=== PATIENT | female | born 1970 | race Caucasian/White ===

== ENCOUNTER 2021-03-17 15:51 | Emergency (ER) | payer OTHER, MEDICAID, SELFPAY ==
--- NOTE | 2021-03-17 15:58 | ED.SKABFB ---
HPI - Skin/Abscess/Foreign Bdy General Chief complaint: Skin/Abscess/Foreign Body Stated complaint: poison bhupinder or sumac on face Time Seen by Provider: 03/17/21 15:58 Source: patient and RN notes reviewed History of Present Illness HPI narrative: Patient is a 51-year-old female who presents the urgent care with complaints of possible poison bhupinder to the face. Patient believes that her dog gave it to her . Patient states that she has not taken anything [id number] for her symptoms but her PCP always gets her steroids which makes it go away . Patient claims to have a severe allergy to any type of poison bhupinder/sumac. No other acute complaints. No acute distress noted. Patient aware of the plan of care. Some parts of this dictation were generated by voice recognition software and may contain typographical and/or grammatical inaccuracies. Related Data Allergies Allergy/AdvReac Type Severity Reaction Status Date / Time iohexol Allergy Hives Verified 03/17/21 16:06 [From contrast - CT, X-RAY] Review of Systems Review of Systems: CONSTITUTIONAL: Denies fever, chills, or sweats. EYES: Denies visual changes, redness, or discharge. ENT: Denies rhinorrhea, congestion, sore throat, or otalgia. CARDIOVASCULAR: Denies chest pain, palpitations, or edema. RESPIRATORY: Denies cough or dyspnea. GASTROINTESTINAL: Denies abdominal pain, nausea, vomiting, or diarrhea. GENITOURINARY: Denies dysuria or hematuria. SKIN: Reports of itchy poison bhupinder to the face MUSCULOSKELETAL: Denies back pain, joint pain, or myalgia. NEUROLOGIC: Denies headache, numbness, or weakness. All other systems reviewed are negative, except as documented in HPI. PMFSH Comments At the time of my signature, I reviewed and agree with the nursing past medical, surgical, social, and family history. There is no relevant family history pertinent to the patient complaint. Exam Narrative: GENERAL: This is a well-nourished, well-developed patient, in no apparent distress. HEAD: normocephalic, atraumatic. EYES: PERRL. Sclera clear/white. Vision is grossly intact. EARS: External ears normal NOSE: External nose normal with no obvious nasal discharge, nares without redness, no rhinorrhea. THROAT: Mucous membranes moist NECK: Neck supple CARDIOVASCULAR: Regular rate and rhythm. Pacemaker/defibrillator RESPIRATORY: Clear to auscultation. Breath sounds equal bilaterally. No wheezes, rales, or rhonchi. SKIN: Mildly pruritic erythemic raised papular dermatitis noted to the right upper cheek and the left side of the face. Warm, intact with no suspicious lesions or rash, good texture and turgor. NEURO: awake, alert, and oriented to person, place and time. There were no obvious focal neurologic abnormalities. EXTREMITIES: No clubbing, cyanosis, or edema. Course Vital Signs Vital signs: Vital Signs Temperature 99.7 F H 03/17/21 16:02 Pulse Rate 81 03/17/21 16:02 Respiratory Rate 20 03/17/21 16:02 Blood Pressure 134/74 03/17/21 16:02 Pulse Oximetry 98 03/17/21 16:02 Temperature 99.7 F H 03/17/21 16:02 Pulse Rate 81 03/17/21 16:02 Respiratory Rate 20 03/17/21 16:02 Blood Pressure 134/74 03/17/21 16:02 Pulse Oximetry 98 03/17/21 16:02 Reviewed MDM - Skin/Abscess/Foreign Bdy MDM Narrative Medical decision making narrative: Advised the patient to complete the steroid regimen as prescribed. Start the regimen tomorrow considering you have had a large dose in the facility today. Be sure to eat and drink with the medication. Use an oral antihistamine such as Benadryl/Claritin/Zyrtec daily. May use a cool cloth to the area as needed for inflammation and comfort. Follow-up with your PCP within 2 to 5 days or for worsening symptoms or failure to improve. Differential Diagnosis Differential diagnosis: Likely abscess of skin or subcutaneous tissue, viral exanthem, dermatophytosis, urticaria, herpes zoster, cellulitis, insect bites, impetigo and contact dermat
[2021-03-17 16:02] VITALS: BP 134/74; PULSE 81; RESP 20; TEMP 37.6; O2SAT 98
[2021-03-17] MEDS: predniSONE 20 MG TABLET 60 MG PO (16:27)
== END 2021-03-17 16:30 | disposition home or self-care (01) ==
PROVIDERS: Emergency Provider Nurse Practitioner Family; PCP Internal Medicine
DX: L23.7 Allergic contact dermatitis due to plants, except food (principal)
CPT/HCPCS: 99213; G0463; J7512

== ENCOUNTER 2021-04-09 15:05 | Emergency (ER) | payer OTHER, MEDICAID, SELFPAY ==
[2021-04-09 15:24] VITALS: BP 142/99; PULSE 93; RESP 14; TEMP 36.8; O2SAT 98
[2021-04-09 15:33] VITALS: BP 142/99; PULSE 93; RESP 14; TEMP 36.8; O2SAT 98
--- NOTE | 2021-04-09 16:09 | ED.GENADULT ---
HPI - General Adult General Chief complaint: Dental/Oral Stated complaint: tooth inf Source: patient Mode of arrival: ambulatory Limitations: no limitations History of Present Illness HPI narrative: Patient presents for evaluation of right upper dental pain since yesterday. She states she has a temporary cap in place. She believes she has an active infection. No fever, chills, nausea, vomiting, facial swelling, trismus, problems handling secretions. She states the pain is throbbing, constant, 10 out of 10 in severity. She had some hydrocodone at home which she took. She is requesting a prescription for ibuprofen and antibiotics. She is not diabetic. She smokes approximately half a pack per day. No additional complaints or concerns. Related Data Home Medications Medication Instructions Recorded Confirmed ivabradine [Corlanor] 5 mg PO BID 03/17/21 04/09/21 Allergies Allergy/AdvReac Type Severity Reaction Status Date / Time iohexol Allergy Hives Verified 04/09/21 15:27 [From contrast - CT, X-RAY] Review of Systems Review of Systems: CONSTITUTIONAL: Denies fever, chills, or sweats. EYES: Denies visual changes, redness, or discharge. ENT: Reports right upper dental pain. Denies rhinorrhea, congestion, sore throat, or otalgia. CARDIOVASCULAR: Denies chest pain, palpitations, or edema. RESPIRATORY: Denies cough or dyspnea. GASTROINTESTINAL: Denies abdominal pain, nausea, vomiting, or diarrhea. GENITOURINARY: Denies dysuria or hematuria. SKIN: Denies rash or itching. MUSCULOSKELETAL: Denies back pain, joint pain, or myalgia. NEUROLOGIC: Denies headache, numbness, dizziness, or weakness. PSYCHIATRIC: Denies anxiety or depression. [facility] Past Medical History Medical History (Updated 04/09/21 @ 16:18 by Jose Alarcon, DESTINEY, ) No pertinent past medical history Surgical History Surgical History History of section Family History Family History Mother No pertinent past medical history Social History Social History Smoking packs per day: 0.5 Smoking cigarettes per day: 10.0 Smoking status: Current every day smoker Substance use: never Living arrangements: with family Gender identity (if verbalized by the patient): Female Sexual Orientation (if Verbalized by the Patient): Straight or Heterosexual Spiritual care concerns: No Exam Narrative: GENERAL: Well-appearing, well-nourished, visibly uncomfortable but in no apparent distress. HEAD: Normocephalic, atraumatic. EYES: PERRLA and EOMI. ENT: Nares clear, no rhinorrhea or epistaxis. Mucous membranes moist. Metallic cap to tooth #3 intact. No visible or palpable abscess oropharynx without tonsillar hypertrophy exudate or other lesions. Bilateral TMs pearly hernandez nonbulging NECK: Supple. No adenopathy or masses. No carotid bruits or JVD CHEST: Clear to auscultation. No respiratory distress. No wheezes rales or rhonchi HEART: Regular rate and rhythm. No murmur heard. Normal peripheral pulses. ABDOMEN: Soft, nontender, nondistended, normal active bowel sounds. EXTREMITIES: Normal range of motion. No edema. SKIN: Warm, dry, no rash. NEURO: No focal deficits. Alert and oriented x3. PSYCH: Normal mood and affect. Course Course Emergency Course: This is a 51-year-old female who presented with complaints of right upper dental pain. I do not appreciate any abscess formation. However, I find it reasonable to give her abx as she has taken norco with modest relief of her pain. Will dc with PCN and ibuprofen. She should follow up with dentist this coming week and she should return for worsening symptoms. She was given toradol while here today. Pt in agreement with plan of care. Vital Signs Vital signs: Vital Signs Temperature 36.8 C 04/09/21 15:24 Pu
[2021-04-09] MEDS: KETOROLAC (*BKC) 60 MG/2 ML VIAL IM (16:15)
--- NOTE | 2021-04-09 16:59 | PC.NURSE ---
1615 toradol 60 mg drawer failed, two 30mg/1ml given for a total of 60mg- verified by Andrew Hill rn. Keith Jeter [employer]/pharmacist aware.
== END 2021-04-09 16:35 | disposition home or self-care (01) ==
PROVIDERS: Emergency Provider Nurse Practitioner; PCP Internal Medicine
DX: K08.89 Other specified disorders of teeth and supporting structures (principal); F17.210 Nicotine dependence, cigarettes, uncomplicated
CPT/HCPCS: 96372; 99213; G0463; J1885

== ENCOUNTER → 2023-01-05 13:03 | Outpatient (CLI) | payer OTHER, MEDICAID, SELFPAY ==
--- NOTE | ~2023-01-05 | XR_ITS ---
XR ankle RT 2V DATE: 01/05/2023 13:34 INDICATION: Inversion injury, lateral ankle and foot pain TECHNIQUE: 2 views COMPARISON: None FINDINGS: No fracture or dislocation of the ankle or disruption of the ankle mortise. No periosteal r eaction or bone destruction. IMPRESSION: Negative Reviewed, dictated and finalized at location A. IMPRESSION: Negative
--- NOTE | ~2023-01-05 | XR_ITS ---
XR foot RT min 3V DATE: 01/05/2023 13:34 INDICATION: Inversion injury. Lateral tarsal pain. TECHNIQUE: 3 views COMPARISON: None FINDINGS: There is a cortical avulsion fracture of the lateral aspect of the anterior process of the calcaneus. No other fracture or dislocation. Hallux valgus and bunion deformity. IMPRESSION: Cortical avulsion fracture at the lateral aspect of the anterior process of calcaneus Reviewed, dictated and finalized at location A. IMPRESSION: Cortical avulsion fracture at the lateral aspect of the anterior pr ocess of calcaneus
== END ==
DX: M79.671 Pain in right foot (principal); M25.571 Pain in right ankle and joints of right foot; R60.0 Localized edema
CPT/HCPCS: 73600; 73630

== ENCOUNTER 2025-01-25 12:53 | Emergency (ER) | payer OTHER, MEDICAID, SELFPAY ==
--- OUTSIDE RECORDS SUMMARY | 2025-01-25 12:57 | XMS_ITS | Clinical Summary ---
Author Organization [facility] Medical Office Building A Address [address] [place] [address] Care Team Providers Care Neonatal Social Worker Name Role Phone Star Martins Primary Care Provider Maicol Chester MD Unavailable [phone] Allergies Active Allergy Reactions Criticality Noted Date Comments Carvedilol Dapagliflozin Propanediol Dystonia High 11/14/2021 Furosemide Iodinated Contrast Media Iodine Sertraline Other (See comments) Low 01/24/2023 suicidal Medications dextroamphetami ne-amphetamine (ADDERALL) 30 mg tablet 01/10/2019 Active lisdexamfetamin e (VYVANSE) 70 mg capsule Take 1 capsule (70 mg total) by mouth every morning 30 capsule 11/19/2019 Active aspirin 81 mg enteric coated tablet 07/27/2020 Active ezetimibe (ZETIA) 10 mg tablet 09/14/2020 Active estradioL (IMVEXXY) 10 mcg insert vaginal insert Insert 10 mcg into the vagina 2 (two) times a week 8 each 05/31/2022 Active valACYclovir (Valtrex) 1 gram tablet Take 1 tablet (1,000 mg total) by mouth daily 30 tablet 11 05/31/2022 Active HYDROcodone-nenita taminophen (NORCO) 10-325 mg per tabletIndicatio ns:Pain Take 1 tablet by mouth every 4 (four) hours as needed for pain Dx G89.4 120 tablet 12/21/2024 Active Active Problems Problem Noted Date Diagnosed Date Seasonal depression 07/29/2023 Dysthymia 01/24/2023 Irritant contact dermatitis due to other agents 12/25/2021 Assessment & Plan (12/25/2021 4:46 PM CDT): Likely poison bhupinder prednisone 60 for 5 days 40 for 2 and 20 for 2. triamcinalone not for face or where skin to skin contact. Primary osteoarthritis of right hand 05/22/2021 Assessment & Plan (05/22/2021 2:58 PM SERVICE INSPECTOR): actue pain on top of progrssive sudden trial pred and see if can put to rest or referal to rheum . agarees to referal to hand surg for optons as excellent chance that hte steroid parvin not work after off them cold packs limit use after and during steroids Recurrent UTI 05/23/2020 Assessment & Plan (05/23/2020 1:36 PM SERVICE INSPECTOR): Culture neg but started antibiotics at home and neg likely rfrom with abn urine Given recurrent multiple times a yr uti will strt chronic suppression with single strength septra as given macrobid this spring if breaks thru then consider switch to anyother for trial. PE (physical exam), annual 11/23/2019 Assessment & Plan (03/29/2021 2:51 PM CDT): Well exzm low fall risk derpoiens screen neg cog screen nl at age 51 shold conaisder Colon but high risk given End stage chd. . Order. Did not take covid and refuses flu anld covid. Suggest p hsot series given severity of underlying illness Assessment & Plan (11/23/2019 5:46 PM CDT): Well exam sith chronic pain and adhd treated by breann mazariegos heart Issues recurrent uti discussed optinos. Ning due and indicates parvin get and colon screen due at aget 50. Fall flu shots Dyspareunia in female 05/19/2019 Vaginal atrophy 05/19/2019 Assessment & Plan (05/19/2019 9:39 AM SERVICE INSPECTOR): Discussed with patient she is not a candidate for oral estrogen replacement due to cardiovascular history. Patient may be considered for intravaginal replacement. She is aware I will need to consult with one of the medical doctor's to determine safety/risks vs benefits prior to ordering any type of medication for vaginal atrophy. Patient is receptive to plan. Will await test results. Primary osteoarthritis of right knee 10/23/2018 Assessment & Plan (10/23/2018 2:34 PM CDT): refereral ortho if congt to be issue but see rheum first and go from there Polyarthralgia 01/24/2018 Assessment & Plan (10/23/2018 2:35 PM CDT): First apptn in weeks and re eval after wseen as rx for that if an ansswer then should see some added spin off. Assessment & Plan (01/24/2018 10:05 AM CDT): Checking the labs to determine other etiologies which could be causing her poly myalgias however I do not see any thing that could be concerning of lupus or RA at this point time certainly will touch base in regard to results of labs and need for additional management Psychosocial stressors 05/16/2017 Assessment & Plan (05/16/2017 4:53 PM CDT): Patient is under a great deal of psychosocial stress. Please refer to HPI. She declines any additional treatment at this time. She wants to wait it out a couple of days and discuss further when she returns for follow-up early next week. She was encouraged to reach out to me in the interim with any additional questions concerns, change in, worsening, or non improvement in her condition. She denies any suicidal or homicidal thoughts or ideation. Chronic pain syndrome 02/08/2017 Assessment & Plan (02/14/2022 3:50 PM CDT): Stable and discussedd refills and folow up Assessment & Plan (09/25/2021 2:26 PM CDT): Pain stable an dkeeps med same no early refills and not switcing pharm Assessment & Plan (03/29/2021 2:48 PM CDT): Stable sc r eened for drugs and narcotic there Assessment & Plan (09/29/2020 2:34 PM CDT): chroinc pain on meds and constipatino from it . Keep pain meds at stalb e monthly levels and gets meds from us 1-2 times a yr screen urine Assessment & Plan (05/23/2020 1:38 PM SERVICE INSPECTOR): snf goal to get to 4 a day instead of 5 or more. Check urine screeen on reutrn Assessment & Plan (11/23/2019 5:43 PM CDT): High dose heriberto meds gradually backed orf 180 amonth and down to 150 for now in fuute will re eval backoing off 5 a month top 120 a months. Drug screen going forward Assessment & Plan (05/27/2019 3:10 PM SERVICE INSPECTOR): Urine + for drug;. Stable chroinc pain. No early refill request no lost pills discussed reduced meds an dcurrent breakthru and Not heriberto free 04/02. No changes and ongoing checks Assessment & Plan (01/22/2019 1:37 PM CDT): Chronic pain. Aware that can not be Pain free 24/ and that as takes more and higher doses will always become intolerant of pain narcotics.pain contract signed Assessment & Plan (10/23/2018 2:32 PM CDT): chrnoic heriberto back. Using meds reg. Knee on r now stopping her. . Stable on pain meds and check urine screen +_ for drug in aug and not check with nov Assessment & Plan (05/08/2018 9:49 AM CDT): heriberto on going and not controlled wthi 4 vicoden a day with 10's. Admits that has jason=come tolerant to and not very effective Assessment & Plan (01/24/2018 10:06 AM CDT): After checking the [facility] prescription monitoring site, which she actually is listed under [facility] [place] and having her sign a pain contract, I have refilled her [place] to take as prescribed follow-up in 4 months as scheduled with Dr. Alvarez and certainly sooner as indicated Assessment & Plan (08/14/2017 1:27 PM SERVICE INSPECTOR): Chronic pain stable on meds. Cont as yo are. Drug scfreen late last fall + for narcotic and amphetatmines . No other drugs Assessment & Plan (05/16/2017 4:52 PM CDT): On chronic analgesia. Patient reports compliance with medication. Urine drug screen obtained per patient request. Assessment & Plan (02/08/2017 11:51 AM CDT): Going to 4 a day but will not go higher Nonsustained ventricular tachycardia 08/20/2014 Assessment & Plan (03/29/2021 2:49 PM CDT): Implant for and chf Assessment & Plan (11/23/2019 5:43 PM CDT): Under care of card Assessment & Plan (01/22/2019 1:36 PM CDT): Se's card and has defib and Pacer in Assessment & Plan (05/08/2018 9:49 AM CDT): See's card Implantable cardioverter-defibrillator (ICD) in situ 08/20/2013 Assessment & Plan (01/22/2019 1:33 PM CDT): See's card reg and in a study Aortic valve stenosis 04/27/2013 Mitral valve insufficiency 04/27/2013 Tricuspid valve insufficiency 04/27/2013 Pleural cavity effusion 04/27/2013 Mitral valve disease 04/07/2013 Cardiomyopathy 04/07/2013 Assessment & Plan (03/29/2021 2:48 PM CDT): Monitored by card Assessment & Plan (05/23/2020 1:38 PM SERVICE INSPECTOR): The chf se's card for Assessment & Plan (11/23/2019 5:43 PM CDT): crd see's and takes care off Assessment & Plan (05/08/2018 9:50 AM CDT): See's card and in clinical trial. Warned about nsaid's and salt retention Chronic systolic congestive heart failure 2012 Assessment & Plan (09/25/2021 2:24 PM CDT): Se's card and new implant and working well Assessment & Plan (03/29/2021 2:47 PM CDT): See's card and treated. Assessment & Plan (08/03/2020 6:20 PM SERVICE INSPECTOR): actue on chronic chf systolic with dialated heart parvin check bnp cmes cbc to eval more but feels chf playls some role Assessment & Plan (05/23/2020 1:39 PM SERVICE INSPECTOR): seebessy's 'card for Assessment & Plan (01/22/2019 1:33 PM CDT): See's card for Assessment & Plan (05/08/2018 9:49 AM CDT): In Clinical trial Anxiety disorder 12/26/2009 Overview (04/30/2021): Note: Unchanged Note: Unchanged Attention deficit disorder without hyperactivity 12/26/2009 Overview (04/30/2021): Note: Unchanged Assessment & Plan (12/25/2021 4:48 PM CDT): Steroid for some are stimulants so be aware given drugs on Assessment & Plan (09/25/2021 2:26 PM CDT): adhd stable on meds Tobacco use disorder 12/26/2009 Overview (04/30/2021): Note: Unchanged Assessment & Plan (12/03/2023 12:36 PM CDT): She was advised to quit smoking; the risks of continued tobacco use discussed. Assessment & Plan (07/28/2023 3:09 PM SERVICE INSPECTOR): She was advised to quit smoking; the risks of continued tobacco use discussed. Assessment & Plan (07/25/2022 12:34 PM SERVICE INSPECTOR): She was advised to quit smoking; the risks of continued tobacco use discussed. Resolved Problems Problem Noted Date Diagnosed Date Resolved Date Encounter for screening colonoscopy 08/19/2023 12/03/2023 Encounter for screening colonoscopy 08/19/2023 06/15/2024 Neurogenic orthostatic hypotension 02/14/2022 12/03/2023 Assessment & Plan (02/14/2022 3:49 PM CDT): bp drop and consider supoort hose and wathch when jumpps BMI 20.0-20.9, adult 09/25/2021 023 Assessment & Plan (12/25/2021 4:49 PM CDT): Wt stable Assessment & Plan (09/25/2021 2:25 PM CDT): wrk to keep stable Recurrent cystitis 02/09/2020 0 Assessment & Plan (02/09/2020 3:05 PM CDT): Recurring cystitis with 2 + urine cultures w/ growth of E.Coli in the last 4 months, July and September (both treated with antibiotics), given sx today and intermittent, recurring sx recommending consultation to urologist to rule out concerns of possible bladder ulceration, interstitial cystitis or any other etiologies to explain ongoing sx. Furthermore, holding off on treatment recommending conservative management including hydration pending further direction with urine culture, analysis as of tomorrow. Aforementioned, further direction tomorrow with preliminary testing in the interim with any concerns. Body mass index (BMI) of 19. 0 to 19.9 in adult 11/23/2019 09/25/2021 Assessment & Plan (05/22/2021 2:56 PM SERVICE INSPECTOR): Work to keep stabvle Assessment & Plan (03/29/2021 2:48 PM CDT): Work to not drop Assessment & Plan (11/23/2019 5:44 PM CDT): Low body wt stable Pain in both hands 05/08/2018 3 Assessment & Plan (05/08/2018 9:46 AM CDT): Bilateral baswe of thumb with pain and swelling. inflamatory checdks neg. Check evens and look for errosion. If neg then arg to see rheum and likely sono joint and see if thickening of membranes. Puncture wound of great toe of right foot 11/21/2017 08/22/2018 Assessment & Plan (11/21/2017 2:45 PM CDT): Of coucern is apparent exit wound on top fo r First t oe. Unable to move the first toe and swelled. referal to er for xray. eval and optin of treaament. Had tetnus rep ortedly last yr at [facility] . High risk soteomyolitits. Bone infedtion. Er should be able to get some expert opion as to best course as well as prove if I fact went thru the toe joint. Vaginal pain 08/14/2017 08/22/2018 Assessment & Plan (08/14/2017 1:34 PM SERVICE INSPECTOR): Strongly urged to see instructor of spanish as been several yrs and can work on the absence of swex drive alonb withy vag pain with intercourse. Given age and hot flashes likely from hormone Lack . Consider trace doses of vag ext rogen until s ee;s instructor of spanish,estrace Vag Cream. On Finger tip use dayly for a week then try 3 times a week and adjust. Using trace amount top pically applied to extrenal vagina and see instructor of spanish For opino and options Acute cystitis without hematuria 05/16/2017 11/23/2019 Assessment & Plan (05/27/2019 3:09 PM SERVICE INSPECTOR): E coli scnsitive fto all but sulf and amoxil Ongoing c.o and will check urine off antibiotcs 24-36 hrs and Then once lturned in cqn start cefuroxim(500 bid for 10 days) and pydidime (200 tid For 3 days), urine out and Call if not heard. discused possible otyher r easons why feel like urti. Like yeast Assessment & Plan (05/08/2018 9:53 AM CDT): [facility] Assessment & Plan (05/16/2017 4:51 PM CDT): Increasing fluid intake was recommended. Patient was instructed to take antibiotic as directed. Patient was encouraged to take antibiotic with food. I have also recommended daily probiotic, yogurt or capsule, while on the antibiotic. Urine sample will be submitted to the lab for urinalysis with reflex to microscopy and culture. Patient should anticipate a call from me regarding urine culture results within 3 days of having testing completed. Patient has been instructed to contact the office if they have not heard from me with results within this time frame. Prior urine culture/susceptibility panel reviewed. Close follow-up here early next week. Sooner if indicated. Other chronic pain 05/16/2017 8 Impacted cerumen of left ear 02/08/2017 08/14/2017 Assessment & Plan (02/08/2017 11:51 AM CDT): Wax mostly out. Use a triple antibiotic cream at the opening of the ear and should help the re sidual iritation Tinea of nail 02/08/2017 08/14/2017 Assessment & Plan (02/08/2017 11:54 AM CDT): Both big toe nails involved. Need to clip the nail to attached area. Or the med will not treat. Will check baselinile alt.liver functino to prove stable and risk for the liver then apears near nil Congestive heart failure 10/13/2014 Overview (04/30/2021): Note: atrial fibrillation Assessment & Plan (12/25/2021 4:48 PM CDT): Given chf severe watch for salt retentino as sevfere chf. More care with salt then usual Fatigue 01/04/2014 07/28/2023 Edema 04/22/2013 01/24/2023 Palpitations 04/07/2013 11/23/2019 Encounters Date Type Department Care Team Description 11/19/2024 Telephone [facility] Cardiology [id number] [facility] 8[address] [place] [address] [place] [address] Vince Rodriguez MD PhD from Last 3 Months Immunizations Immunization Administration Dates Next Due Influenza, Unspecified 08/25/2024(Deferr ed: Patient Refused),06/15/2024(Deferred: Patient Refused),07/29/2023(Deferred: Patient Refused),04/14/2023(Deferred: Patient Refused),09/29/2020(Deferred: Patient Refused),08/03/2020(Deferred: Patient Refused),05/23/2020(Deferred: Patient Refused),04/14/2020(Deferred: Patient Refused),02/17/2020(Deferred: Patient Refused),02/13/2020(Deferred: Patient Refused),04/20/2019(Deferred: Patient Refused),04/14/2019(Deferred: Patient Refused),04/14/2019(Deferred: Patient Refused),08/22/2018(Deferred: Patient ill today) Tdap 03/29/2020 Surgical History Surgery Date Site/Laterality Comments SECTION Caesarean Section OTHER SURGICAL HISTORY pacemaker/defibulator [id number] OTHER SURGICAL HISTORY 1987/2009 Medical History Medical History Date Comments Hx Other Medical Cardiomyopathy Hx Other Medical ETOH abuse Attention deficit disorder ADHD Hx Other Medical Palpitations Hx Other Medical Substance abuse - crystal meth UTI (urinary tract infection) CHF (congestive heart failure) (HCC) Cardiomyopathy (HCC) Family History Medical History Relation Name Comments Other Father 2 CHF, AFIB; Heart attack Maternal Grandmother 2 [place]; C ause of : [place] Rheum arthritis Mother 2 Rheumatoid a rthritis; Cause of : Rheumatoid arthritis Relation Name Status Comments Father 1 Alive Father 2 Maternal Grandmother 1 (Age 82) Maternal Grandmother 2 Mother 1 (Age 65) Mother 2 Social History Tobacco Use Types Packs/Day Years Used Date Smoking Tobacco: Every Day Cigarettes 0.1 20 Smokeless Tobacco: Current Tobacco Cessation:Ready to Q uit: No; Counseling Given: Yes Comments:1pk x 20 years, .5ok x 18 years = 29 pk years Alcohol Use Standard Drinks/Week Comments Yes 0 (1 standard drink = 0.6 oz pur e alcohol) AUDIT-C Answer Date Recorded Q1: How often do you have a drink containing alc ohol? Monthly or less 08/25/2024 Q2: How many drinks containi ng alcohol do you have on a typical day when you are drinking? 1 or 2 08/25/2024 Q3: How often do you have si x or more drinks on one occasion? Never 08/25/2024 PHQ-2 Answer Date Recorded PHQ-2 Total Score (If total score is 3 or more points, staff should administer the PHQ-9) 6 08/25/2024 Personal Safety Answer Date Recorded Have you ever been in or are you currently in a harmful physical or emotional relationship or is someone making you feel afraid or unsafe? Denies 08/24/2024 Comments No Sex and Gender Information Value Date Recorded Sex Assigned at Not on file Legal Sex Female 9:26 AM SERVICE INSPECTOR Gender Identity Not on file Sexual Orientation Not on file Occupation Industry Job Start Date Job End Date Unemployed Not on file Not on file Not on file Obstetrics History Para Term AB IAB SAB Ectopic Multiple Livin g Live Births 6 2 2 4 0 1 2 2 Date Outcome GA Total Labor Labor/2nd/3rd Weight Sex Type Anes PTL Susanne A1 A5 Name Clin SAB AB AB AB 8 Term 2.778 kg (6 lb 2 oz) F CS-Un spec Living 0 Term 3.232 kg (7 lb 2 oz) F CS-Un spec Living Last Filed Vital Signs Vital Sign Reading Time Taken Comments Blood Pressure 108/70 08/25/2024 2:53 PM SERVICE INSPECTOR Pulse 81 08/25/2024 2:53 PM SERVICE INSPECTOR Temperature 36.3 C (97.4 F) 08/25/2024 2:53 PM SERVICE INSPECTOR Respiratory Rate 16 08/25/2024 2:53 PM SERVICE INSPECTOR Oxygen Saturation 98% 08/25/2024 2:53 PM SERVICE INSPECTOR Inhaled Oxygen Concentration - - Weight 59.9 kg (132 lb) 08/28/2024 2:30 PM SERVICE INSPECTOR Height 172.7 cm (5' 8) 08/28/2024 2:30 PM SERVICE INSPECTOR Body Mass Index 20.07 08/28/2024 2:30 PM SERVICE INSPECTOR Plan of Treatment Health Maintenance Due Date Last Done Comments Colon Cancer Screening-Colonoscopy 1970 Pneumococcal vaccine <65 (1 of 2 - PCV) 1989 Zoster Vaccine (1 of 2) 2020 Cervical Cancer Screening 05/31/2023 05/31/2022, 10/2018 Breast Cancer Screening-Mammogram 08/23/2024 024, 06/24/2012 Regular Well Visit/Exam 18-64 12/02/2024, 07/25/2022, 05/31/2022, Additional history exists Influenza Vaccine (#1) 2025 Depression Screening 08/25/2025 08/25/2024, 06/15/2024, 12/03/2023, Additional history exists Lung Cancer Screening 08/29/2025 08/28/2024, 024 DTaP/Tdap/Td Vaccine (2 - Td or Tdap) 03/29/2030 03/29/2020 Hepatitis B Screening Completed 12/03/2023 Hepatitis C Screening Completed 12/03/2023 Procedures Procedure Name Priority Date/Time Associated Diagnosis Comments CT LUNG CANCER SCREENING Schedule Routine, Read Routine (OP Routine) 08/28/2024 2:29 PM SERVICE INSPECTOR Personal history of tobacco use, presenting hazards to health HEPATITIS C ANTIBODY Routine 12/03/2023 2:22 PM CDT Need for hepatitis C screening test SCREENING MAMMOGRAM BILATERAL W ALDO Schedule Routine, Read Routine (OP Routine) 08/23/2023 2:33 PM SERVICE INSPECTOR Screening mammogram for breast cancer PAP AND HIGH RISK HPV, REFLEX TO GENOTYPING Routine 05/31/2022 11:54 AM SERVICE INSPECTOR Screening for malignant neoplasm of cervix from Last 3 Months or Most Recently Relevant to Health Maintenance Results * CT Lung Cancer Screening (08/28/2024 2:29 PM SERVICE INSPECTOR) Anatomical Region Laterality Modality Chest N/A Computed Tomogra phy 09/02/2024 8:05 AM SERVICE INSPECTOR Narrative 09/02/2024 8:14 AM SERVICE INSPECTOR EXAM DESCRIPTION: CT LUNG CANCER SCREENING REASON FOR STUDY: Screening CT of the chest in a current smoker with a 29.5 pack year smoking history. Additional history: None. TECHNIQUE: Low dose CT scan of the chest was performed without intravenous contrast using helical scanning technique. The exam extends from the lung apices through the lung bases. Automatic exposure control was used as a dose optimization technique. NOTE: This study was performed for the specific purposes of lung cancer screening and is not an alternative to diagnostic chest CT. The sensitivity for detection of solid visceral lesions is diminished without the use of intravenous contrast. RADIATION DOSE: CT dose index volume (CTDIvol) = 0.96 mGy COMPARISON: CT chest 08/23/2023 FINDINGS: SMOKING RELATED LUNG DISEASE: Mild pulmonary emphysema. LUNG NODULES: Calcified granulomas in the left lower lobe. Noncalcified 2 mm nodule in the lateral right upper lobe (image 91) is unchanged. Subpleural noncalcified 2 mm nodule in the lateral left upper lobe (image 42) is unchanged. No new nodule. PLEURAE: No pneumothorax or pleural effusion. MEDIASTINUM/GIOVANNA: No mediastinal or hilar lymphadenopathy within the limitations of a noncontrast exam. HEART: Heart size is normal with no pericardial effusion. CORONARY ARTERY CALCIFICATION: Absent VASCULATURE: No thoracic aortic aneurysm. AXILLAE: No lymphadenopathy. CHEST WALL: No masses. No subcutaneous air. HARDWARE/LINES/TUBES: Bilateral chest generator packs with leads terminating in the right atrium and right ventricle. UPPER ABDOMEN: No significant abnormality. MUSCULOSKELETAL: Mild thoracic spondylosis. IMPRESSION: Stable noncalcified pulmonary nodules measuring up to 2 mm. Mild pulmonary emphysema. Lung-RADS category 2: Benign appearance or behavior. Recommendation: Low dose Screening CT of chest in 12 months. THIS IS AN ELECTRONICALLY VERIFIED FINAL REPORT 09/02/2024 8:14 AM - Electronically signed by Alec Quintanilla M.D. LB: GIULIANO Report ID: [id number] Reading Location: [place] [address] Procedure Note Alec Quintanilla MD - 09/02/2024 EXAM DESCRIPTION: CT LUNG CANCER SCREENING REASON FOR STUDY: Screening CT of the chest in a current smoker with a29.5 pack year smoking history. Additional history: None. TECHNIQUE: Low dose CT scan of the chest was performed without intravenous contrast using helical scanning technique. The exam extends from the lung apices through the lung bases. Automatic exposure control was used as adose optimization technique. NOTE: This study was performed for the specific purposes of lung cancer screening and is not an alternative to diagnostic chest CT. Thesensitivity for detection of solid visceral lesions is diminished without the use of intravenous contrast. RADIATION DOSE: CT dose index volume (CTDIvol) = 0.96 mGy COMPARISON: CT chest 08/23/2023 FINDINGS: SMOKING RELATED LUNG DISEASE: Mild pulmonary emphysema. LUNG NODULES: Calcified granulomas in the left lower lobe. Noncalcified2 mm nodule in the lateral right upper lobe (image 91) is unchanged.Subpleural noncalcified 2 mm nodule in the lateral left upper lobe (image 42) is unchanged. No new nodule. PLEURAE: No pneumothorax or pleural effusion. MEDIASTINUM/GIOVANNA: No mediastinal or hilar lymphadenopathy within the limitations of a noncontrast exam. HEART: Heart size is normal with no pericardial effusion. CORONARY ARTERY CALCIFICATION: Absent VASCULATURE: No thoracic aortic aneurysm. AXILLAE: No lymphadenopathy. CHEST WALL: No masses. No subcutaneous air. HARDWARE/LINES/TUBES: Bilateral chest generator packs with leadsterminating in the right atrium and right ventricle. UPPER ABDOMEN: No significant abnormality. MUSCULOSKELETAL: Mild thoracic spondylosis. IMPRESSION: Stable noncalcified pulmonary nodules measuring up to 2 mm. Mild pulmonary emphysema. Lung-RADS category 2: Benign appearance or behavior. Recommendation: Low dose Screening CT of chest in 12 months. THIS IS AN ELECTRONICALLY VERIFIED FINAL REPORT 09/02/2024 8:14 AM - Electronically signed by Alec Quintanilla M.D. LB: GIULIANO Report ID: [id number] Reading Location: [place] [address] PROCEDURES Final Result * Hepatitis C antibody Blood (12/03/2023 2:22 PM CDT) Hep C Ab Nonreactive Nonreactive Comment: Interpretive Data Nonreactive: Antibodies to HCV not detected. Does NOT exclude the possibility of recent exposure to HCV. Equivocal: Equivocal for HCV antibodies. Supplemental molecular testing will be automatically performed to determine infection status in accordance with current CDC screening recommendations. Reactive: Positive for HCV antibodies. This may represent current or past HCV infection. Supplemental molecular testing will be automatically performed to determine current infection status in accordance with current CDC screening recommendations. Interpretive data was last revised on 2019. Testing performed by: [facility], [address] [place] [address]., [address] Blood 12/03/2023 2:22 PM CDT 12/03/2023 9:10 PM CDT [facility] MICROBIOLOGY - GENE RAL ORDERABLES Edited Result - Final MELISSA [facility]) 2 [facility] Department [place] [address] * SCREENING MAMMOGRAM BILATERAL W ALDO (08/23/2023 2:33 PM SERVICE INSPECTOR) Anatomical Region Laterality Modality Breast Bilateral Mammography 08/23/2023 2:39 PM SERVICE INSPECTOR Impressions 08/23/2023 2:39 PM SERVICE INSPECTOR There is no mammographic evidence of malignancy. A 1 year screening mammogram is recommended. BI-RADS: 1 - Negative. The patient has been or will be contacted. The patient will be entered into a reminder system with a target due date of 1 year for her next mammogram. Electronically signed by: BALDEV NUNEZ Narrative 08/23/2023 2:39 PM SERVICE INSPECTOR EXAMINATION: SCREENING MAMMOGRAM BILATERAL W ALDO ORDERING HEALTHCARE PROVIDER: STAR MARTINS HISTORY: Routine screening mammography. COMPARISON: 06/24/2012. TECHNIQUE: CC and MLO views of both breasts were obtained with digital technique using digital breast tomosynthesis with C view. Computer aided detection was utilized. FINDINGS: DENSITY: The breasts are heterogeneously dense, which may obscure small masses. BREASTS: Pacer generator is partially seen in the upper aspects of both breasts at posterior depth on the MLO views. No new suspicious findings are identified in either breast. us [facility] MAMMO PROCEDURES Fi nal Result * Pap and High Risk HPV, reflex to Genotyping (05/31/2022 11:54 AM SERVICE INSPECTOR) Thin prep (Pap test) 05/31/2022 11:54 AM SERVICE INSPECTOR 05/31/2022 11:54 AM SERVICE INSPECTOR Narrative PATHOLOGY CH - 06/05/2022 12:59 PM SERVICE INSPECTOR [facility] Department of Pathology [address] [place], [place] [id number] Final Report with Addendum Note to Patients: This report may contain a detailed description of human tissue sent by a health care provider to the laboratory for pathologic evaluation. The content of this report is essential for diagnosis and may provide important critical findings. This information may be unfamiliar to patients to review without a medical professional present. It is advised that the patient review this report in the presence of a health care provider who can answer questions and explain the details. Patient Name: KAROL PRESCOTT Address: [address] [place] [address] Gender: F : 1970 (Age: 52) Service: Location: [facility] : [id number] [facility] #: [id number] Patient Type: SPECIMEN Taken: 05/31/2022 Received: 05/31/2022 Accessioned:: 06/01/2022 Reported: 06/05/2022 Physician(s): Marianela E. Elsa, D.Vanessa Hunter D.O. Diagnosis: Source of Specimen: SCREENING THIN PREP IMAGED PAP w/ HPV Specimen Adequacy: - Satisfactory for evaluation; endocervical/transformation zone component present General Category: - Negative for intraepithelial lesion or malignancy Interpretation/Results: - Numerous inflammatory cells present NAHEED Wayne(ASCP) Report Electronically Reviewed and Signed Out By YUMIKO WayneASCP) 06/05/2022 12:59:32Addenda: HPV Test Interpretation NEGATIVE for types 16, 18, 31, 33, 35, 39, 45, 51, 52, 56, 58, 59, 66 and 68. Test performed utilizing Gen-Probe Aptima assay. NAHEED Pagan(ASCP)Report Electronically Reviewed and Signed Out By YUMIKO PaganASCP) 06/01/2022 17:35:15 Specimen(s) Received: A: SCREENING THIN PREP IMAGED PAP w/ HPV Clinical History: Menstrual History: Post-menopausal The Pap test is a screening test used to aid in the detection of cervical cancer and its precursors. It should not be the sole means by which malignant and premalignant lesions are diagnosed. Both false negative and false positive results may occur. It also has poor sensitivity for the detection of endometrial lesions and should not be used to evaluate suspected endometrial abnormalities. For these reasons it is most important to obtain Pap tests at regular intervals. The performance characteristics of some immunohistochemical stains, fluorescence in-situ hybridization tests and immunophenotyping by flow cytometry cited in this report (if any) were determined by the Surgical Pathology Department at [facility] as part of an ongoing supervisor vendor quality program and in compliance with federally mandated regulations drawn from the Clinical Laboratory Improvement Act of 1988 (CLIA '88). Some of these tests rely on the use of analyte specific reagents and are subject to specific labeling requirements by the US Food and Drug Administration. Such diagnostic tests may only be performed in a facility that is certified by the Department of Health and Human Services as a high complexity laboratory under CLIA '88. The FDA has determined that such clearance or approval is not necessary. This test is used for clinical purposes. It should not be regarded as investigational or for research. Nevertheless, federal rules concerning the medical use of analyte specific reagents require that the following disclaimer be attached to the report: This test was developed and its performance characteristics determined by the Surgical Pathology Department [facility]. It has not been cleared or approved by the U. S. Food and Drug Administration. us Marianela Hunter DO LAB [place]OLOGY [place] [address] [place] [address] from Last 3 Months or Most Recently Relevant to Health Maintenance Insurance [facility] H[facility]/PPO Address: [address] [address] [place] [address] IDPA [facility] H[facility]/PPO Address: [address] [place] [id number] IDPA [facility] H[facility]/PPO Address: [address] [address] [place] [address] IDPA Care Teams Neonatal Social Worker Relationship Specialty Start Date End Date Star Martins PA [address] [facility] [address] [facility] [place] [address] PCP - General Internal Medicine 04/03/22 [place] [address] [address] Consulting Physician Cardiology 07/25/22
--- OUTSIDE RECORDS SUMMARY | 2025-01-25 12:57 | XMS_ITS | Encounter Summary ---
Author Organization [facility] Address [address] [facility] [address] [place] [address] Phone Care Team Providers Care Swing Tender Name Role Phone Chris Alvarez MD Primary Care Provi arabella Chris Alvarez MD Primary Care Provi arabella Chris Alvarez MD Primary Care Provi arabella Chris Alvarez MD Primary Care Provi arabella Chris Alvarez MD Primary Care Provi arabella Star [facility]ins Primary Care Provider Maicol [place] MD Unavailable [phone] Encounter Details Date Type Department Care Team (Late st Contact Info) Description 02/26/2014 Orders Only [facility]CON[facility] Provider, MD Joselyn [address] [place] [address] Social History Tobacco Use Types Packs/Day Years Used Date Smoking Tobacco: Every Day Alcohol Use Standard Drinks/Week Comments Yes 0 (1 standard drink = 0.6 oz pur e alcohol) Comments Unknown Sex and Gender Information Value Date Recorded Sex Assigned at Not on file Legal Sex Female 9:26 AM MINES INSPECTOR Gender Identity Not on file Sexual Orientation Not on file documented as of this encounter Plan of Treatment Not on file documented as of this encounter Procedures Procedure Name Priority Date/Time Associated Diagnosis Comments CARDIOLOGY REPORT 02/26/2014 documented in this encounter Results * CARDIOLOGY REPORT (02/26/2014) Anatomical Region Laterality Modality Other Narrative 02/26/2014 Ordered by an unspecified provider. us Historical Provider [facility] BOWERS Final Result documented in this encounter Visit Diagnoses Not on filedocumented in this encounter Additional Health Concerns Infection Onset Date Last Indicated Resolved Time COVID: Suspected 05/19/2022 05/19/2022 05/19/2022 8:22 AM CDT documented as of this encounter Care Teams Swing Tender Relationship Specialty Start Date End Date Chris Alvarez MD PCP - General 10/12/16 04/02/22 Chris Alvarez MD PCP - General 11/07/15 10/11/16 Chris Alvarez MD PCP - General 09/14/15 11/06/15 Chris Alvarez MD PCP - General 08/23/15 09/13/15 Chris Alvarez MD PCP - General 01/05/13 08/22/15 Star Martins PA [address] [place] [address] [place] [address] PCP - General Internal Medicine 04/03/22 [place] [address] [place] [address] Consulting Physician Cardiology 07/25/22 documented as of this encounter
--- OUTSIDE RECORDS SUMMARY | 2025-01-25 12:57 | XMS_ITS | Encounter Summary ---
Author Organization [facility] Address [address] [facility] [address] [place] [address] Phone Care Team Providers Care Radial Drill Press Operator For Plastic Name Role Phone Chris Alvarez MD Primary Care Provi arabella Chris Alvarez MD Primary Care Provi arabella Chris Alvarez MD Primary Care Provi arabella Chris Alvarez MD Primary Care Provi arabella Chris Alvarez MD Primary Care Provi arabella Star Martins Primary Care Provider Maicol [place] MD Unavailable [phone] Encounter Details Date Type Department Care Team (Late st Contact Info) Description 09/05/2014 Orders Only [facility] Provider, MD Joselyn [address] [place] [address] Social History Tobacco Use Types Packs/Day Years Used Date Smoking Tobacco: Every Day Alcohol Use Standard Drinks/Week Comments Yes 0 (1 standard drink = 0.6 oz pur e alcohol) Comments Unknown Sex and Gender Information Value Date Recorded Sex Assigned at Not on file Legal Sex Female 9:26 AM COMPENSATION ADJUSTER Gender Identity Not on file Sexual Orientation Not on file documented as of this encounter Plan of Treatment Not on file documented as of this encounter Procedures Procedure Name Priority Date/Time Associated Diagnosis Comments CARDIOLOGY REPORT 09/05/2014 documented in this encounter Results * CARDIOLOGY REPORT (09/05/2014) Anatomical Region Laterality Modality Other Narrative 09/05/2014 Ordered by an unspecified provider. us Historical Provider [facility] C[facility] LORRI BOWERS Final Result documented in this encounter Visit Diagnoses Not on filedocumented in this encounter Additional Health Concerns Infection Onset Date Last Indicated Resolved Time COVID: Suspected 05/19/2022 05/19/2022 05/19/2022 8:22 AM CDT documented as of this encounter Care Teams Radial Drill Press Operator For Plastic Relationship Specialty Start Date End Date Chris Alvarez MD PCP - General 10/12/16 04/02/22 Chris Alvarez MD PCP - General 11/07/15 10/11/16 Chris Alvarez MD PCP - General 09/14/15 11/06/15 Chris Alvarez MD PCP - General 08/23/15 09/13/15 Chris Alvarez MD PCP - General 01/05/13 08/22/15 Star Martins PA [address] [place] [address] [place] [address] PCP - General Internal Medicine 04/03/22 [place] [address] [place] [address] Consulting Physician Cardiology 07/25/22 documented as of this encounter
--- OUTSIDE RECORDS SUMMARY | 2025-01-25 12:57 | XMS_ITS | Encounter Summary ---
Author Organization [facility] Address [address] [facility] [address] [place] [address] Phone Care Team Providers Care Sports Health Club Membership Advisors Name Role Phone Chris Alvarez MD Primary Care Provi arabella Chris Alvarez MD Primary Care Provi arabella Chris Alvarez MD Primary Care Provi arabella Chris Alvarez MD Primary Care Provi arabella Chris Alvarez MD Primary Care Provi arabella Star [facility]ins Primary Care Provider Maicol [place] MD Unavailable [phone] Encounter Details Date Type Department Care Team (Late st Contact Info) Description 08/04/2014 Orders Only [facility] Provider, MD Joselyn [address] [place] [address] Social History Tobacco Use Types Packs/Day Years Used Date Smoking Tobacco: Every Day Alcohol Use Standard Drinks/Week Comments Yes 0 (1 standard drink = 0.6 oz pur e alcohol) Comments Unknown Sex and Gender Information Value Date Recorded Sex Assigned at Not on file Legal Sex Female 9:26 AM GUEST ROOM ATTENDANT Gender Identity Not on file Sexual Orientation Not on file documented as of this encounter Plan of Treatment Not on file documented as of this encounter Procedures Procedure Name Priority Date/Time Associated Diagnosis Comments CARDIOLOGY REPORT 08/04/2014 documented in this encounter Results * CARDIOLOGY REPORT (08/04/2014) Anatomical Region Laterality Modality Other Narrative 08/04/2014 Ordered by an unspecified provider. us Historical Provider [facility] LORRI BOWERS Final Result documented in this encounter Visit Diagnoses Not on filedocumented in this encounter Additional Health Concerns Infection Onset Date Last Indicated Resolved Time COVID: Suspected 05/19/2022 05/19/2022 05/19/2022 8:22 AM CDT documented as of this encounter Care Teams Sports Health Club Membership Advisors Relationship Specialty Start Date End Date Chris Alvarez MD PCP - General 10/12/16 04/02/22 Chris Alvarez MD PCP - General 11/07/15 10/11/16 Chris Alvarez MD PCP - General 09/14/15 11/06/15 Chris Alvarez MD PCP - General 08/23/15 09/13/15 Chris Alvarez MD PCP - General 01/05/13 08/22/15 Star Martins PA [address] [place] [address] [place] [address] PCP - General Internal Medicine 04/03/22 [place] [address] [place] [address] Consulting Physician Cardiology 07/25/22 documented as of this encounter
--- OUTSIDE RECORDS SUMMARY | 2025-01-25 12:57 | XMS_ITS | Encounter Summary ---
Author Organization [facility] Address [address] [facility] [address] [place] [address] Phone Care Team Providers Care Driller Hand Name Role Phone Chris Alvarez MD Primary Care Provi arabella Chris Alvarez MD Primary Care Provi arabella Chris Alvarez MD Primary Care Provi arabella Chris Alvarez MD Primary Care Provi arabella Chris Alvarez MD Primary Care Provi arabella Star Martins Primary Care Provider Maicol Chester MD Unavailable [phone] Encounter Details Date Type Department Care Team (Late st Contact Info) Description 04/13/2014 Orders Only [facility] Provider, MD Joselyn [address] [place] [address] Social History Tobacco Use Types Packs/Day Years Used Date Smoking Tobacco: Every Day Alcohol Use Standard Drinks/Week Comments Yes 0 (1 standard drink = 0.6 oz pur e alcohol) Comments Unknown Sex and Gender Information Value Date Recorded Sex Assigned at Not on file Legal Sex Female 9:26 AM QUANTITATIVE ANALYST DEVELOPER Gender Identity Not on file Sexual Orientation Not on file documented as of this encounter Plan of Treatment Not on file documented as of this encounter Procedures Procedure Name Priority Date/Time Associated Diagnosis Comments CARDIOLOGY REPORT 04/13/2014 documented in this encounter Results * CARDIOLOGY REPORT (04/13/2014) Anatomical Region Laterality Modality Other Narrative 04/13/2014 Ordered by an unspecified provider. us Historical Provider [facility] L[facility]RI BOWERS Final Result documented in this encounter Visit Diagnoses Not on filedocumented in this encounter Additional Health Concerns Infection Onset Date Last Indicated Resolved Time COVID: Suspected 05/19/2022 05/19/2022 05/19/2022 8:22 AM CDT documented as of this encounter Care Teams Driller Hand Relationship Specialty Start Date End Date Chris Alvarez MD PCP - General 10/12/16 04/02/22 Chris Alvarez MD PCP - General 11/07/15 10/11/16 Chris Alvarez MD PCP - General 09/14/15 11/06/15 Chris Alvarez MD PCP - General 08/23/15 09/13/15 Chris Alvarez MD PCP - General 01/05/13 08/22/15 Star Martins PA [address] [place] [address] [place] [address] PCP - General Internal Medicine 04/03/22 [place] [address] [place] [address] Consulting Physician Cardiology 07/25/22 documented as of this encounter
--- OUTSIDE RECORDS SUMMARY | 2025-01-25 12:57 | XMS_ITS | Encounter Summary ---
Author Organization [facility] Address [address] [place] [address] Care Team Providers Care Reforestation Worker Name Role Phone Star Martins Primary Care Provider Maicol [place] MD Unavailable [phone] Reason for Visit * Auth/Cert (Routine) Specialty Diagnoses / Procedures Referred By Contac t Referred To Contact Diagnoses Encounter for screening colonoscopy Encounter for screening colonoscopy [Z12.11] Procedures MS COLONOSCOPY FLX DX W/COLLJ SPEC WHEN PFRMD COLONOSCOPY Referral ID Status Reason Start Date Expiration Date Visits Re quested Visits Authorized [id number] 1 1 Encounter Details Date Type Department Care Team (Late st Contact Info) Description 02/27/2024 Hospital Encounter [facility] [address] [place] [address] Brandee Forbes MD [address] [place] [address] [address] [place] [address] Social History Tobacco Use Types Packs/Day Years Used Date Smoking Tobacco: Every Day Cigarettes 0.1 20 Smokeless Tobacco: Current Comments:1pk x 20 years, .5o k x 18 years = 29 pk years [...] on file Legal Sex Female 9:26 AM VACUUM SYSTEM TESTER Gender Identity Not on file Sexual Orientation Not on file Occupation Industry Job Start Date Job End Date Unemployed Not on file Not on file Not on file documented as of this encounter Functional Status * Audit-C Score Answer Date of Assessment Author 1 08/25/2024 2:54 PM VACUUM SYSTEM TESTER Caitlyn Rodriguez MA * Question Answer Date of Assessment Author Q1: How often do you have a drink containing alcohol? Monthly or less 08/25/2024 2:54 PM Shannan Pierce MA Q2: How many drinks containing alcohol do you have on a typical day when you are drinking? 1 or 2 08/25/2024 2:54 PM Salena Pierce MA Q3: How often do you have si x or more drinks on one occasion? Never 08/25/2024 2:54 PM Salena Pierce MA documented as of this encounter Plan of Treatment Not on file documented as of this encounter Visit Diagnoses Not on filedocumented in this encounter Admitting Diagnoses Diagnosis Encounter for screening colonoscopy documented in this encounter Care Teams Reforestation Worker Relationship Specialty Start Date End Date Star Martins PA [address] [place] [address] [address] [place] [address] PCP - General Internal Medicine 04/03/22 [place] [address] [address] [place] [address] [place] [address] Consulting Physician Cardiology 07/25/22 documented as of this encounter
--- OUTSIDE RECORDS SUMMARY | 2025-01-25 12:57 | XMS_ITS | Encounter Summary ---
Author Organization [facility] Address [address] [facility] [address] [place] [address] Phone Care Team Providers Care Managed Care Provider Name Role Phone Chris Alvarez MD Primary Care Provi arabella Chris Alvarez MD Primary Care Provi arabella Chris Alvarez MD Primary Care Provi arabella Chris Alvarez MD Primary Care Provi arabella Chris Alvarez MD Primary Care Provi arabella Star Martins Primary Care Provider Maicol [place] MD Unavailable [phone] Encounter Details Date Type Department Care Team (Late st Contact Info) Description 08/26/2013 Orders Only [facility]CON[facility] Provider, MD Joselyn [address] [place] [address] Social History Tobacco Use Types Packs/Day Years Used Date Smoking Tobacco: Every Day Alcohol Use Standard Drinks/Week Comments Yes 0 (1 standard drink = 0.6 oz pur e alcohol) Comments Unknown Sex and Gender Information Value Date Recorded Sex Assigned at Not on file Legal Sex Female 9:26 AM SALESPERSON FLOWERS Gender Identity Not on file Sexual Orientation Not on file documented as of this encounter Plan of Treatment Not on file documented as of this encounter Procedures Procedure Name Priority Date/Time Associated Diagnosis Comments CARDIOLOGY REPORT 08/26/2013 documented in this encounter Results * CARDIOLOGY REPORT (08/26/2013) Anatomical Region Laterality Modality Other Narrative 08/26/2013 Ordered by an unspecified provider. us Historical Provider [facility] LORRI BOWERS Final Result documented in this encounter Visit Diagnoses Not on filedocumented in this encounter Additional Health Concerns Infection Onset Date Last Indicated Resolved Time COVID: Suspected 05/19/2022 05/19/2022 05/19/2022 8:22 AM CDT documented as of this encounter Care Teams Managed Care Provider Relationship Specialty Start Date End Date Chris Alvarez MD PCP - General 10/12/16 04/02/22 Chris Alvarez MD PCP - General 11/07/15 10/11/16 Chris Alvarez MD PCP - General 09/14/15 11/06/15 Chris Alvarez MD PCP - General 08/23/15 09/13/15 Chris Alvarez MD PCP - General 01/05/13 08/22/15 Star Martins PA [address] [place] [address] [place] [address] PCP - General Internal Medicine 04/03/22 [place] [address] [place] [address] Consulting Physician Cardiology 07/25/22 documented as of this encounter
--- OUTSIDE RECORDS SUMMARY | 2025-01-25 12:57 | XMS_ITS | Referral Summary ---
Author Organization [facility] Medical Office Building A Address [address] [place] [address] Care Team Providers Care Portfolio Specialist Name Role Phone Star Martins Primary Care Provider Maicol Chester MD Unavailable [phone] Encounters Date Type Department Care Team Description 11/19/2024 Telephone [facility] Cardiology [address] [facility] 8[address] [place] [address] [place] [address] Vince Rodriguez MD PhD from Last 3 Months Allergies Active Allergy Reactions Criticality Noted Date [...] 2 (two) times a week 8 each 11 05/31/2022 Active valACYclovir (Valtrex) 1 gram tablet [...] 05/22/2021 Assessment & Plan (05/22/2021 2:58 PM SALES AGENT INSURANCE): actue pain on top of progrssive sudden trial pred and see if can put to rest or referal to rheum . 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 Check urine screeen on reutrn Assessment & Plan (11/23/2019 5:43 PM CDT): High dose heriberto meds gradually backed orf 180 amonth and down to 150 for now in fuute will re eval backoing off 5 a month top 120 a months. Drug screen going forward Assessment & Plan (05/27/2019 3:10 PM SALES AGENT INSURANCE): Urine + for drug;. Stable chroinc pain. No early refill request no lost pills discussed reduced meds an dcurrent breakthru and Not heriberto free 04/02. No changes and ongoing checks Assessment & Plan (01/22/2019 1:37 PM CDT): Chronic pain. Aware that can not be Pain free 24/7 and that as takes more and higher [...] (01/24/2018 10:06 AM CDT): After checking the [facility] prescription monitoring site, which she actually is listed under JORGE Prescott and having her sign a pain contract, I have refilled her [place] to take as prescribed follow-up in 4 months as scheduled with Dr. Alvarez and certainly sooner as indicated Assessment & Plan (08/14/2017 1:27 PM SALES AGENT INSURANCE): Chronic pain stable on meds. Cont as [...] card Assessment & Plan (05/23/2020 1:38 PM SALES AGENT INSURANCE): The chf se's card for Assessment & [...] treated. Assessment & Plan (08/03/2020 6:20 PM SALES AGENT INSURANCE): actue on chronic chf systolic with dialated heart parvin check bnp cmes cbc to eval more but feels chf playls some role Assessment & Plan (05/23/2020 1:39 PM SALES AGENT INSURANCE): seebessy's 'card for Assessment & Plan (01/22/2019 [...] discussed. Assessment & Plan (07/28/2023 3:09 PM SALES AGENT INSURANCE): She was advised to quit smoking; the risks of continued tobacco use discussed. Assessment & Plan (07/25/2022 12:34 PM SALES AGENT INSURANCE): She was advised to quit smoking; the [...] 09/25/2021 Assessment & Plan (05/22/2021 2:56 PM SALES AGENT INSURANCE): Work to keep stabvle Assessment & Plan [...] Had tetnus rep ortedly last yr at [facility] . High risk soteomyolitits. Bone infedtion. Er should be able to get some expert opion as to best course as well as prove if I fact went thru the toe joint. Vaginal pain 08/14/2017 08/22/2018 Assessment & Plan (08/14/2017 1:34 PM SALES AGENT INSURANCE): Strongly urged to see hot water heater installer as been several yrs and can work on the absence of swex drive alonb withy vag pain with intercourse. Given age and hot flashes likely from hormone Lack . Consider trace doses of vag ext rogen until s ee;s hot water heater installer,estrace Vag Cream. On Finger tip use dayly for a week then try 3 times a week and adjust. Using trace amount top pically applied to extrenal vagina and see hot water heater installer For opino and options Acute cystitis without hematuria 05/16/2017 11/23/2019 Assessment & Plan (05/27/2019 3:09 PM SALES AGENT INSURANCE): E coli scnsitive fto all but sulf and amoxil Ongoing c.o and will check urine off antibiotcs 24-36 hrs and Then once lturned in cqn start cefuroxim(500 bid for 10 days) and pydidime (200 tid For 3 days), urine out and Call if not heard. discused possible otyher r sid why feel like urti. Like yeast Assessment & Plan (05/08/2018 9:53 AM CDT): [facility] Assessment & Plan (05/16/2017 4:51 [...] 07/28/2023 Edema 04/22/2013 01/24/2023 Palpitations 04/07/2013 11/23/2019 Immunizations Immunization Administration Dates Next Due Influenza, Unspecified 08/25/2024(Deferr ed: Patient Refused),06/15/2024(Deferred: Patient Refused),07/29/2023(Deferred: Patient Refused),04/14/2023(Deferred: Patient Refused),09/29/2020(Deferred: Patient Refused),08/03/2020(Deferred: Patient Refused),05/23/2020(Deferred: Patient Refused),04/14/2020(Deferred: Patient Refused),02/17/2020(Deferred: Patient Refused),02/13/2020(Deferred: Patient Refused),04/20/2019(Deferred: Patient Refused),04/14/2019(Deferred: Patient Refused),04/14/2019(Deferred: Patient Refused),08/22/2018(Deferred: Patient ill today) Tdap 03/29/2020 Social History Tobacco Use Types Packs/Day Years [...] on file Legal Sex Female 9:26 AM SALES AGENT INSURANCE Gender Identity Not on file Sexual Orientation Not on file Occupation Industry Job Start Date Job End Date Unemployed Not on file Not on file Not on file Last Filed Vital Signs Vital Sign Reading Time Taken Comments Blood Pressure 108/70 08/25/2024 2:53 PM SALES AGENT INSURANCE Pulse 81 08/25/2024 2:53 PM SALES AGENT INSURANCE Temperature 36.3 C (97.4 F) 08/25/2024 2:53 PM SALES AGENT INSURANCE Respiratory Rate 16 08/25/2024 2:53 PM SALES AGENT INSURANCE Oxygen Saturation 98% 08/25/2024 2:53 PM SALES AGENT INSURANCE Inhaled Oxygen Concentration - - Weight 59.9 kg (132 lb) 08/28/2024 2:30 PM SALES AGENT INSURANCE Height 172.7 cm (5' 8) 08/28/2024 2:30 PM SALES AGENT INSURANCE Body Mass Index 20.07 08/28/2024 2:30 PM SALES AGENT INSURANCE Plan of Treatment Not on file Procedures Procedure Name Priority Date/Time Associated Diagnosis Comments CT LUNG CANCER SCREENING Schedule Routine, Read Routine (OP Routine) 08/28/2024 2:29 PM SALES AGENT INSURANCE Personal history of tobacco use, presenting hazards to health HEPATITIS C ANTIBODY Routine 12/03/2023 2:22 PM CDT Need for hepatitis C screening test SCREENING MAMMOGRAM BILATERAL W ALDO Schedule Routine, Read Routine (OP Routine) 08/23/2023 2:33 PM SALES AGENT INSURANCE Screening mammogram for breast cancer PAP AND HIGH RISK HPV, REFLEX TO GENOTYPING Routine 05/31/2022 11:54 AM SALES AGENT INSURANCE Screening for malignant neoplasm of cervix from Last 3 Months or Most Recently Relevant to Health Maintenance Results * CT Lung Cancer Screening (08/28/2024 2:29 PM SALES AGENT INSURANCE) Anatomical Region Laterality Modality Chest N/A Computed Tomogra phy 09/02/2024 8:05 AM SALES AGENT INSURANCE Narrative 09/02/2024 8:14 AM SALES AGENT INSURANCE EXAM DESCRIPTION: CT LUNG CANCER SCREENING REASON [...] Electronically signed by Alec Quintanilla M.D. LB: LB Report ID: [id number] Reading Location: [id number] Procedure Note Alec Quintanilla MD - 09/02/2024 [...] Alec Quintanilla M.D. LB: GIULIANO Report ID: [id number] Reading Location: [id number] Star WHIPPLE IMG CT PROCEDURES Final Result [...] last revised on 2019. Testing performed by: [facility], [address] [place] [address]., [id number] Blood 12/03/2023 2:22 PM CDT 12/03/2023 9:10 PM CDT Star [facility] LAB MICROBIOLOGY - GENE RAL ORDERABLES Edited Result - Final Performing Organization Address City/State/[facility] Co de Phone Number [facility] [place] [address] [facility] [place] [address] * SCREENING MAMMOGRAM BILATERAL W ADLO (08/23/2023 2:33 PM SALES AGENT INSURANCE) Anatomical Region Laterality Modality Breast Bilateral Mammography 08/23/2023 2:39 PM SALES AGENT INSURANCE Impressions 08/23/2023 2:39 PM SALES AGENT INSURANCE There is no mammographic evidence of malignancy. A 1 year screening mammogram is recommended. BI-RADS: 1 - Negative. The patient has been or will be contacted. The patient will be entered into a reminder system with a target due date of 1 year for her next mammogram. Electronically signed by: BALDEV NUNEZ Narrative 08/23/2023 2:39 PM SALES AGENT INSURANCE EXAMINATION: SCREENING MAMMOGRAM BILATERAL W ALDO ORDERING [...] HPV, reflex to Genotyping (05/31/2022 11:54 AM SALES AGENT INSURANCE) Thin prep (Pap test) 05/31/2022 11:54 AM SALES AGENT INSURANCE 05/31/2022 11:54 AM SALES AGENT INSURANCE Narrative PATHOLOGY CH - 06/05/2022 12:59 PM SALES AGENT INSURANCE [facility] Department of Pathology [address] [place] [address] Final Report with Addendum Note to Patients: [...] the details. Patient Name: KAROL PRESCOTT Address: [address] [place] [address] Gender: F : 1970 (Age: 52) Service: Location: N : [id number] [facility] #: [id number] Patient Type: SPECIMEN Taken: 05/31/2022 Received: 05/31/2022 Accessioned:: 06/01/2022 Reported: 06/05/2022 Physician(s): Marianela Efren Aguilar D.O. Diagnosis: Source of Specimen: SCREENING THIN [...] determined by the Surgical Pathology Department at [facility] as part of an ongoing fuel quality tech program and in compliance with federally mandated [...] characteristics determined by the Surgical Pathology Department [facility]. It has not been cleared or approved by the U. S. Food and Drug Administration. Marianela Hunter DO LAB CYTOLOGY ORDERABLES Final Result PATHOLOGY [address] [place] [address] from Last 3 Months or Most Recently Relevant to Health Maintenance Insurance [facility] H[facility]/PPO Address: [address] [address] [place] [address] IDPA [facility] H[facility]/PPO Address: [address] [address] [employer] [facility] H[facility]/PPO Address: [address] [address] [employer]PA Care Teams Portfolio Specialist Relationship Specialty Start Date End Date Star Martins PA [address] [place] [address] DR HARRELL [address] [place] [address] PCP - General Internal Medicine 04/03/22 [place] [address] [address] Consulting Physician Cardiology 07/25/22
--- OUTSIDE RECORDS SUMMARY | 2025-01-25 12:57 | XMS_ITS | Clinical Summary ---
Author Organization [facility] Address [address] [place] [address] Phone Care Team Providers Care Ornamental Bronze Worker Name Role Phone Chris Alvarez MD Primary Care Provider Unavaila ble Allergies No known active allergies Medications HYDROcodone-acet aminophen (LORTAB) 10-500 MG Tablet Take 1 Tab by mouth 2 times daily. Active ivabradine (CORLANOR) 5 MG Tablet Take 5 mg by mouth 2 times daily (with meals). Active Social History Tobacco Use Types Packs/Day Years Used Date Smoking Tobacco: Every Day Cigarettes Alcohol Use Standard Drinks/Week Comments No 0 (1 standard drink = 0.6 oz pur e alcohol) Comments No Sex and Gender Information Value Date Recorded Sex Assigned at Not on file Legal Sex Female 12:27 AM CDT Gender Identity Not on file Sexual Orientation Not on file Last Filed Vital Signs Vital Sign Reading Time Taken Comments Blood Pressure 137/96 01/01/2017 9:03 PM CDT Pulse 103 01/01/2017 9:03 PM CDT Temperature 36.8 C (98.2 F) 01/01/2017 9:03 PM CDT Respiratory Rate 16 01/01/2017 9:03 PM CDT Oxygen Saturation 96% 01/01/2017 9:03 PM CDT Inhaled Oxygen Concentration - - Weight 59 kg (130 lb) 01/01/2017 9:03 PM CDT Height 172.7 cm (5' 8) 01/01/2017 9:03 PM CDT Body Mass Index 19.77 01/01/2017 9:03 PM CDT Plan of Treatment Health Maintenance Due Date Last Done Comments Hepatitis C Virus (HCV) Screening 1970 TdaP Immunization 1970 Hepatitis B Immunization (1 of 3 - 19+ 3-dose series) 1989 Colonoscopy 2015 Colorectal Cancer Screening 2015 Cologuard 2020 Immunochemical Fecal Occult Blood 2020 Mammogram 2020 Pneumococcal Immunization (5 0+ years) (1 of 1 - PCV) 2020 Zoster Immunization (1 of 2) 2020 Influenza Immunization (#1) 2024 SARS-COV-2 Immunization ( - 2023- season) 2024 Respiratory Syncytial Virus (RSV) Immunization (Adult) (1 - 1-dose 75+ series) 2045 Meningococcal Immunization (ACWY) Aged Out No longer eligible based on patient's age to complete this topic Pneumococcal Immunization Combined Aged Out No longer eligible based on patient's age to complete this topic Rotavirus Immunization Aged Out No lo nger eligible based on patient's age to complete this topic Insurance MEDICAID [employer] Care Teams Ornamental Bronze Worker Relationship Specialty Start Date End Date Chris Alvarez MD [address] [facility] [place] [address] PCP - General Internal Medicine 05/21/16
--- OUTSIDE RECORDS SUMMARY | 2025-01-25 12:57 | XMS_ITS | Encounter Summary ---
Author Organization [facility] Address [address] [facility] [address] [place] [address] Phone Care Team Providers Care Tool Honing Machine Set Up Operator Name Role Phone Chris Alvarez MD Primary Care Provi arabella Chris Alvarez MD Primary Care Provi arabella Chris Alvarez MD Primary Care Provi arabella Chris Alvarez MD Primary Care Provi arabella Chris Alvarez MD Primary Care Provi arabella Star Martins Primary Care Provider Maicol Chester MD Unavailable [phone] Encounter Details Date Type Department Care Team (Late st Contact Info) Description 03/03/2014 Orders Only [facility] Provider, MD Joselyn [address] [place] [address] Social History Tobacco Use Types Packs/Day Years Used Date Smoking Tobacco: Every Day Alcohol Use Standard Drinks/Week Comments Yes 0 (1 standard drink = 0.6 oz pur e alcohol) Comments Unknown Sex and Gender Information Value Date Recorded Sex Assigned at Not on file Legal Sex Female 9:26 AM COUNTER FORMER Gender Identity Not on file Sexual Orientation Not on file documented as of this encounter Plan of Treatment Not on file documented as of this encounter Procedures Procedure Name Priority Date/Time Associated Diagnosis Comments CARDIOLOGY REPORT 03/03/2014 documented in this encounter Results * CARDIOLOGY REPORT (03/03/2014) Anatomical Region Laterality Modality Other Narrative 03/03/2014 Ordered by an unspecified provider. us Historical Provider [facility]RI BOWERS Final Result documented in this encounter Visit Diagnoses Not on filedocumented in this encounter Additional Health Concerns Infection Onset Date Last Indicated Resolved Time COVID: Suspected 05/19/2022 05/19/2022 05/19/2022 8:22 AM CDT documented as of this encounter Care Teams Tool Honing Machine Set Up Operator Relationship Specialty Start Date End Date Chris Alvarez MD PCP - General 10/12/16 04/02/22 Chris Alvarez MD PCP - General 11/07/15 10/11/16 Chris Alvarez MD PCP - General 09/14/15 11/06/15 Chris Alvarez MD PCP - General 08/23/15 09/13/15 Chris Alvarez MD PCP - General 01/05/13 08/22/15 Star Martins PA [address] [place] [address] [place] [address] PCP - General Internal Medicine 04/03/22 [place] [address] [place] [address] Consulting Physician Cardiology 07/25/22 documented as of this encounter
--- OUTSIDE RECORDS SUMMARY | 2025-01-25 12:57 | XMS_ITS | Encounter Summary ---
Author Organization [facility] Address [address] [facility] [address] [place] [address] Phone Care Team Providers Care Burlapper Name Role Phone Chris Alvarez MD Primary Care Provi arabella Chris Alvarez MD Primary Care Provi arabella Chris Alvarez MD Primary Care Provi arabella Chris Alvarez MD Primary Care Provi arabella Chris Alvarez MD Primary Care Provi arabella Star Martins Primary Care Provider Maicol Chester MD Unavailable [phone] Encounter Details Date Type Department Care Team (Late st Contact Info) Description 02/02/2014 Orders Only [facility]IN[facility] Provider, MD Joselyn [address] [place] [address] Social History Tobacco Use Types Packs/Day Years Used Date Smoking Tobacco: Every Day Alcohol Use Standard Drinks/Week Comments Yes 0 (1 standard drink = 0.6 oz pur e alcohol) Comments Unknown Sex and Gender Information Value Date Recorded Sex Assigned at Not on file Legal Sex Female 9:26 AM ETHANOL OPERATOR Gender Identity Not on file Sexual Orientation Not on file documented as of this encounter Plan of Treatment Not on file documented as of this encounter Procedures Procedure Name Priority Date/Time Associated Diagnosis Comments CARDIOLOGY REPORT 02/02/2014 documented in this encounter Results * CARDIOLOGY REPORT (02/02/2014) Anatomical Region Laterality Modality Other Narrative 02/02/2014 Ordered by an unspecified provider. us Historical Provider [facility] LORRI BOWERS Final Result documented in this encounter Visit Diagnoses Not on filedocumented in this encounter Additional Health Concerns Infection Onset Date Last Indicated Resolved Time COVID: Suspected 05/19/2022 05/19/2022 05/19/2022 8:22 AM CDT documented as of this encounter Care Teams Burlapper Relationship Specialty Start Date End Date Chris Alvarez MD PCP - General 10/12/16 04/02/22 Chris Alvarez MD PCP - General 11/07/15 10/11/16 Chris Alvarez MD PCP - General 09/14/15 11/06/15 Chris Alvarez MD PCP - General 08/23/15 09/13/15 Chris Alvarez MD PCP - General 01/05/13 08/22/15 Star Martins PA [address] [place] [address] [place] [address] PCP - General Internal Medicine 04/03/22 [place] [address] [place] [address] Consulting Physician Cardiology 07/25/22 documented as of this encounter
[2025-01-25 12:58] VITALS: BP 133/81; PULSE 92; RESP 20; TEMP 36.8; O2SAT 99
--- NOTE | 2025-01-25 13:11 | ED_ITS ---
HPI - Ear Problem General Chief complaint: Ear Stated complaint: Ear pain Time Seen by Provider: 01/25/25 13:05 Source: patient and RN notes reviewed Mode of arrival: ambulatory Limitations: no limitations History of Present Illness HPI Narrative: 54-year-old female presents Express Care complaining of left ear pain for approximately 2 days. Patient said she returned from the beach 3 days ago and has been swimming in the ocean and going under water 7 days while she was on vacation. Patient denies any drainage from her ear. This pain is not getting better. Patient denies any cough, fevers, upper respiratory symptoms, dizziness, vision changes, any other symptoms. Related Data Allergies Allergy/AdvReac Type Severity Reaction Status Date / Time iohexol (From contrast - CT, Allergy Hives Verified 04/09/21 15:27 X-RAY) Review of Systems Review of Systems: CONSTITUTIONAL: Denies fever, chills, or sweats. EYES: Denies visual changes, redness, or discharge. ENT: Denies rhinorrhea, congestion, sore throat. Positive for otalgia. CARDIOVASCULAR: Denies chest pain, palpitations, or edema. RESPIRATORY: Denies cough or dyspnea. GASTROINTESTINAL: Denies abdominal pain, nausea, vomiting, or diarrhea. GENITOURINARY: Denies dysuria or hematuria. SKIN: Denies rash or itching. MUSCULOSKELETAL: Denies back pain, joint pain, or myalgia. NEUROLOGIC: Denies headache, numbness, or weakness. PSYCHIATRIC: Denies anxiety or depression. All other systems reviewed are negative, except as documented in HPI. [facility] Past Medical History Medical History No pertinent past medical history Surgical History Surgical History History of section Family History Family History Mother No pertinent past medical history Social History Social History Smoking packs per day: 0.5 Smoking cigarettes per day: 10.0 Smoking status: Current every day smoker Substance use: never Living arrangements: with family Gender identity (if verbalized by the patient): Female Sexual Orientation (if Verbalized by the Patient): Straight or Heterosexual Spiritual care concerns: No Comments At the time of my signature, I reviewed and agree with the nursing past medical, surgical, social, and family history. There is no relevant family history pertinent to the patient complaint. Exam Narrative: GENERAL: This is a well-nourished, well-developed adult, in no apparent distress. They are non ill-appearing, nontoxic appearing. HEAD: normocephalic, atraumatic. EYES: Sclera clear/white. Conjunctiva normal. Vision is grossly intact. Extraocular movements intact EARS: External ears normal, left tragal tenderness. Right auditory canals clear and without drainage, left auditory canal erythematous without drainage, TMs normal without perforation. Hearing grossly intact. No mastoid tenderness, no your protrusion. NOSE: External nose normal with no obvious nasal discharge, nasal turbinates without redness, no rhinorrhea. THROAT: Mucous membranes moist, posterior pharynx clear, without erythema or swelling. Uvula midline. NECK: Neck supple, CARDIOVASCULAR: Regular rate and rhythm RESPIRATORY: Respiratory rate normal, respiratory effort nonlabored, no respiratory distress SKIN: warm, Dry, intact with no suspicious lesions or rash, good texture and turgor. NEURO: awake, alert, and oriented to person, place and time. There were no obvious focal neurologic abnormalities. EXTREMITIES: No joint tenderness, effusion, or edema noted. Course Course Emergency Course: Portions of this record may have been created with voice recognition software Level of Care: Express Care Visit Vital Signs Vital signs: Vital Signs Temperature 98.2 F 01/25/25 12:58 Pulse Rate 92 01/25/25 12:58 Respiratory Rate 01/25/25 12:58 Blood Pressure 133/81 01/25/25 12:58 Pulse Oximetry 99 01/25/25 12:58 Oxygen Delivery Room Air 01/25/25 12:58 Temperature 98.2 F 01/25/25 12:58 Pulse Rate 92 01/25/25 12:58 Respiratory Rate 01/25/25 12:58 Blood Pressure 133/81 01/25/25 12:58 Pulse Oximetry 99 01/25/25 12:58 Oxygen Delivery Room Air 01/25/25 12:58 Reviewed Medical Decision Making MDM Narrative Medical decision making narrative: Patient has left otitis externa. Will treat with ofloxacin ear drops. My MDM Differential Diagnosis Differential Diagnosis: Otitis media, otitis externa, upper respiratory infection Vital Signs Vital Signs: Vital Signs Temperature 98.2 F 01/25/25 12:58 Pulse Rate 92 01/25/25 12:58 Respiratory Rate 20 01/25/25 12:58 Blood Pressure 133/81 01/25/25 12:58 Pulse Oximetry 99 01/25/25 12:58 Oxygen Delivery Room Air 01/25/25 12:58 Temperature 98.2 F 01/25/25 12:58 Pulse Rate 92 01/25/25 12:58 Respiratory Rate 20 01/25/25 12:58 Blood Pressure 133/81 01/25/25 12:58 Pulse Oximetry 99 01/25/25 12:58 Oxygen Delivery Room Air 01/25/25 12:58 Critical Care Time Critical Care Time Critical Care Time: No Discharge Plan Discharge Clinical Impression: Otitis externa Qualifiers: Otitis externa type: diffuse Chronicity: acute Laterality: left Qualified Code(s): H60.312 - Diffuse otitis externa, left ear Patient Disposition: Home Condition: Stable Instructions: Antibiotic Form, How to Use Ear Drops (ED), Ear Infection (ED) Additional Instructions: Take antibiotic drops as directed. Tylenol and ibuprofen every 8 hours as needed to reduce fever, pain Avoid water or anything into the ear for one week Follow up with your personal physician for further evaluation and treatment within 3-5days. If your symptoms persist, change or worsen significantly, go to the emergency department for further evaluation. Patient Language: Pashto Prescriptions: New ofloxacin 0.3 % drops 10 drp LEFT EAR DAILY 7 Days Qty: 10 0RF Follow-up/Referrals: Eliezer,SOLE Doshi [Primary Care Provider] - Time of Disposition: 13:09
== END 2025-01-25 13:14 | disposition home or self-care (01) ==
PROVIDERS: PCP Physician Assistant
DX: H60.312 Diffuse otitis externa, left ear (principal); F17.210 Nicotine dependence, cigarettes, uncomplicated
CPT/HCPCS: 99213; G0463